=== PATIENT | female | born 1990 ===

== ENCOUNTER 2018-05-17 14:31 | Emergency (ER) | payer OTHER ==
[2018-05-17 14:41] VITALS: RESP 16; TEMP 98.4; O2SAT 98
[2018-05-17] MEDS ORDERED: Lidocaine 2% MPF (5 ml) Inj ONE (16:05)
--- NOTE | 2018-05-17 16:17 | C.PDOC ---
History Of Present Illness 28 year old female presents to the emergency department complaining of pain to the left great toe after stubbing her foot 3 days ago. She denies any weakness or numbness. Time Seen by Provider: 05/17/18 14:49 Chief Complaint (Nursing): Lower Extremity Problem/Injury History Per: Patient History/Exam Limitations: no limitations Onset/Duration Of Symptoms: Days Current Symptoms Are (Timing): Still Present Past Medical History Reviewed: Historical Data, Nursing Documentation, Vital Signs Vital Signs: Last Vital Signs Temp 98.4 F 05/17/18 14:39 Pulse 72 05/17/18 19:53 Resp 16 05/17/18 19:53 BP 136/84 05/17/18 19:53 Pulse Ox 98 05/17/18 19:53 Family History: States: No Known Family Hx - Social History Hx Alcohol Use: Yes Hx Substance Use: No - Immunization History Hx Tetanus Toxoid Vaccination: No Hx Influenza Vaccination: No Hx Pneumococcal Vaccination: No Review Of Systems Except As Marked, All Systems Reviewed And Found Negative. Constitutional: Negative for: Fever, Chills Cardiovascular: Negative for: Chest Pain Respiratory: Negative for: Shortness of Breath Gastrointestinal: Negative for: Nausea, Vomiting Musculoskeletal: Positive for: Foot Pain (Left great toe) Neurological: Negative for: Weakness, Numbness Physical Exam - Physical Exam Appears: Non-toxic, No Acute Distress Skin: Warm, Dry, No Rash Head: Atraumatic, Normacephalic Eye(s): bilateral: Normal Inspection Oral Mucosa: Moist Neck: Supple Extremity: Tenderness (to distal phalanx of left foot ), Other (100% subugual hemorrhage to left great toe) ED Course And Treatment O2 Sat by Pulse Oximetry: 98 (RA) Pulse Ox Interpretation: Normal - Other Rad Left Foot X-ray X-Ray: Read By Radiologist Interpretation: Findings: Mild hallux valgus deformity. No evidence of acute displaced fracture or dislocation. Vertically-oriented lucency at the base of the 1st distal phalanx on the frontal view likely represents prominent vascular groove. This is not as well appreciated on the additional sequences. Additional lucency at the base of the 5th metatarsal bone also may represent overlapping bones. Clinical correlation. Curvilinear areas of increased attenuation at level of the ankle may represent artifact. Impression: Mild hallux valgus deformity. No evidence of acute displaced fracture or dislocation. Vertically-oriented lucency at the base of the 1st distal phalanx on the frontal view likely represents prominent vascular groove. This is not as well appreciated on the additional sequences. Additional lucency at the base of the 5th metatarsal bone also may represent overlapping bones. Clinical correlation. Curvilinear areas of increased attenuation at level of the ankle may represent artifact. If pain persists, consider MRI. Progress Note: Left foot great toe x-ray ordered. Skin was prep with Betadine. Digital block of the left great toe with Lidocaine 2%, left great toe subungual hemorrage was drained with electric cautery. Complexity: simple. Drainage: blood. Drainage amount: moderate. Wound treatment: dressed. Patient tolerance: Patient tolerated the procedure well with no immediate complications. Keflex po given. Disposition - Disposition Referrals: Adonay Loredo DPM [Staff Provider] - [facility] [Outside] [facility] [Outside] Disposition: HOME/ ROUTINE Disposition Time: 19:42 Condition: STABLE Additional Instructions: Follow up with Criminal Justice Social Worker tomorrow. Return to ED if feel worse. 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 - Scribe Statement The provider has reviewed the documentation as recorded by the Scribe All medical record entries made by the Scribe were at my direction and personally dictated by me. I have reviewed the chart and agree that the record accurately reflects my personal performance of the history, physical exam, medical decision making, and the department course for this patient. I have also personally directed, reviewed, and agree with the discharge instructions and disposition.
--- NOTE | 2018-05-17 16:42 | RAD ---
Left foot great toe three views History: Injury. Comparison: None available. Findings: Mild hallux valgus deformity. No evidence of acute displaced fracture or dislocation. Vertically-oriented lucency at the base of the 1st distal phalanx on the frontal view likely represents prominent vascular groove. This is not as well appreciated on the additional sequences. Additional lucency at the base of the 5th metatarsal bone also may represent overlapping bones. Clinical correlation. Curvilinear areas of increased attenuation at level of the ankle may represent artifact. Impression: Mild hallux valgus deformity. No evidence of acute displaced fracture or dislocation. Vertically-oriented lucency at the base of the 1st distal phalanx on the frontal view likely represents prominent vascular groove. This is not as well appreciated on the additional sequences. Additional lucency at the base of the 5th metatarsal bone also may represent overlapping bones. Clinical correlation. Curvilinear areas of increased attenuation at level of the ankle may represent artifact. If pain persists, consider MRI.
[2018-05-17] MEDS ORDERED: Bacitracin 500 Units/gm Oint Foilpak UD ONE ×3 (19:26→19:30)
[2018-05-17 19:53] VITALS: BP 136/84; PULSE 72
== END 2018-05-17 19:53 | disposition home or self-care (01) ==
LOC: C.ER 14:31
DX: S90.112A Contusion of left great toe without damage to nail, initial encounter (principal); W22.8XXA Striking against or struck by other objects, initial encounter; Y92.9 Unspecified place or not applicable

== ENCOUNTER 2018-10-27 23:30 | Emergency (ER) | payer SELFPAY ==
--- NOTE | 2018-10-28 00:46 | C.PDOC ---
History Of Present Illness 28 year old female presents to the ER with a complaint of right knee pain. Patient states she was running after the bus when she tripped on a metal sidewalk grid and hit her right knee. She reports the pain is worse with ambulation and with bending of the knee. Denies weakness or numbness. Time Seen by Provider: 10/27/18 23:58 Chief Complaint (Nursing): Lower Extremity Problem/Injury History Per: Patient History/Exam Limitations: no limitations Onset/Duration Of Symptoms: Hrs Current Symptoms Are (Timing): Still Present Recent travel outside of the [place]: No - Knee Description Of Injury: Fell Past Medical History Reviewed: Historical Data, Nursing Documentation, Vital Signs Vital Signs: Last Vital Signs Temp 98.1 F 10/27/18 23:36 Pulse 79 10/27/18 23:36 Resp 18 10/27/18 23:36 BP 129/83 10/27/18 23:36 Pulse Ox 99 10/27/18 23:36 Surgical History: Appendectomy Family History: States: Unknown Family Hx - Social History Hx Alcohol Use: Yes Hx Substance Use: No - Immunization History Hx Tetanus Toxoid Vaccination: No Hx Influenza Vaccination: No Hx Pneumococcal Vaccination: No Review Of Systems Musculoskeletal: Positive for: Other (Right knee pain) Neurological: Negative for: Weakness, Numbness Physical Exam - Physical Exam Appears: Non-toxic Skin: Normal Color, Warm, Dry Head: Atraumatic, Normacephalic Eye(s): bilateral: Normal Inspection Back: No Vertebral Tenderness, No Paraspinal Tenderness Extremity: No Deformity, Other (Right knee tenderness with mild swelliing and excoriation, pain with flexion of right knee. Limited ROM of right knee secondary to pain.) Pulses: Left Dorsalis Pedis: Normal, Right Dorsalis Pedis: Normal Neurological/Psych: Oriented x3, Normal Speech, Normal Motor, Normal Sensation Gait: Steady ED Course And Treatment O2 Sat by Pulse Oximetry: 99 (Room air) Pulse Ox Interpretation: Normal - Other Rad Right knee x-ray X-Ray: Interpreted by Me, Viewed By Me Interpretation: No acute fracture or dislocation Progress Note: Right knee x-ray ordered, results were negative. Motrin administered. Patient is resting comfortably in the ER in no acute distress, ambulatory with steady gait, vitals are stable, will discharge home with Rx and instructions to follow up with PMD. 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 - Scribe Statement The provider has reviewed the documentation as recorded by the Scribandrew Riley All medical record entries made by the Auroraibandrew were at my direction and personally dictated by me. I have reviewed the chart and agree that the record accurately reflects my personal performance of the history, physical exam, medical decision making, and the department course for this patient. I have also personally directed, reviewed, and agree with the discharge instructions and disposition.
[2018-10-28 00:55] VITALS: BP 118/84; PULSE 75; RESP 16; TEMP 98.5
[2018-10-28 01:08] VITALS: O2SAT 99
--- NOTE | 2018-10-28 13:45 | RAD ---
PROCEDURE: Right Knee Radiographs. HISTORY: pain, fall COMPARISON: No prior. FINDINGS: BONES: No acute displaced fracture. JOINTS: No dislocation. JOINT EFFUSION: No significant joint effusion. OTHER FINDINGS: None. IMPRESSION: No acute displaced fracture, dislocation, or significant joint effusion identified. If symptoms persist, or if there is continued clinical concern, x-ray follow-up in 7-10 days should be considered.
== END 2018-10-28 00:55 | disposition home or self-care (01) ==
LOC: C.ER 23:30
DX: S80.01XA Contusion of right knee, initial encounter (principal); W01.0XXA Fall on same level from slipping, tripping and stumbling without subsequent striking against object, initial encounter; Y93.02 Activity, running; Y92.480 Sidewalk as the place of occurrence of the external cause